=== PATIENT | female | born 1985 | race African-American/Black ===

== ENCOUNTER 2021-06-28 16:41 | Emergency (ER) | payer OTHER ==
[~2021-06-28] VITALS: Ht 167.6 cm; Wt 73.9 kg
[2021-06-28 17:14] LABS: URINE BILIRUBIN NEGATIVE (Negative); URINE BLOOD NEGATIVE (Negative); URINE CLARITY CLEAR; URINE COLOR YELLOW; URINE GLUCOSE-RANDOM NEGATIVE (Negative); URINE KETONES TRACE (Negative); URINE LEUKOCYTES-REFLEX NEGATIVE (Negative); URINE NITRITE-REFLEX NEGATIVE (Negative); URINE PROTEIN NEGATIVE (Negative); URINE SPECIFIC GRAVITY <= 1.005 (1.005-1.030); URINE UROBILINOGEN 0.2 E.U./dl (0.2-1.0)
[2021-06-28 17:23] LABS: AMP/METHAMP Negative (Negative); BARBITURATES Negative (Negative); BENZODIAZEPINES Negative (Negative); COCAINE Negative (Negative); METHADONE Negative (Negative); OPIATES Negative (Negative); PCP Negative (Negative); THC Negative (Negative)
[2021-06-28 17:34] LABS: ABSOLUTE BASOPHILS 0.1 thou/uL (0.0-0.2); ABSOLUTE EOSINOPHILS 0.1 thou/uL (0.0-0.7); ABSOLUTE MONOCYTES 0.4 thou/uL (0.0-1.2); ABSOLUTE NEUTROPHILS 5.1 thou/uL (1.6-8.1); EOSINOPHILS 0.7 %; HEMATOCRIT 41.2 % (37.0-47.0); HEMOGLOBIN 13.8 gm/dL (12.0-15.0); LYMPHOCYTES 26.1 %; MCH 27.4 pg (26.0-34.0); MCHC 33.6 g/dL (28.0-37.0); MCV 81.7 fL (80.0-100.0); MONOCYTES 5.6 %; MPV 8.3 fl. (7.2-11.1); NUCLEATED RBCS 0 /100WBC; PLATELET COUNT* 232 thou/uL (150-400); POLYS 66.6 %; RBC 5.05 mil/uL (4.20-5.00); WBC 7.6 thou/uL (4.0-11.0)
[2021-06-28 17:54] LABS: CALCIUM 8.8 mg/dL (8.5-10.1); POTASSIUM 3.8 mmol/L (3.5-5.1)
[2021-06-28 17:59] LABS: ALBUMIN 4.4 g/dL (3.4-5.0); TOTAL BILIRUBIN 0.4 mg/dL (<0.1-1.0); TOTAL PROTEIN 8.3 g/dL (6.4-8.2)
[2021-06-28 18:12] LABS: ACETAMINOPHEN < 2 ug/mL (10-30); ALCOHOL < 10 mg/dL (<10); SALICYLATE < 2.8 mg/dL (2.8-20.0)
[2021-06-28 19:45] VITALS: BP 148/69
== END 2021-06-28 20:09 | disposition home or self-care (01) ==
LOC: M.ERS 16:41
PROVIDERS: Family Medicine
DX: F63.81 Intermittent explosive disorder (principal)